=== PATIENT | female | born 1995 | race Caucasian/White ===

== ENCOUNTER 2024-10-08 14:38 | Emergency (ER) | payer MEDICAID ==
[2024-10-08] MEDS ORDERED: Ketamine 200 MG/20 ML MDV ONE (14:49)
[2024-10-08] MEDS ORDERED: fentaNYL 50 MCG/ML SDV ONE (14:49)
[2024-10-08] MEDS ORDERED: Ketamine 200 MG/20 ML MDV IVPUSH ONE (14:57)
[2024-10-08] MEDS: fentaNYL 50 MCG/ML SDV IVPUSH ONE (15:00)
[2024-10-08] MEDS: Ketamine 200 MG/20 ML MDV IVPUSH ONE (15:05)
== END 2024-10-08 15:33 | disposition home or self-care (01) ==
LOC: CC.ED 14:38
DX: S43.004A Unspecified dislocation of right shoulder joint, initial encounter (principal); W01.0XXA Fall on same level from slipping, tripping and stumbling without subsequent striking against object, initial encounter
CPT/HCPCS: 23650; 73020-RT; 96374; 99283-25; J3010; J3490

== ENCOUNTER 2025-03-06 15:47 | Emergency (ER) | payer MEDICAID ==
[2025-03-06] MEDS: Sodium Chloride 0.9% 500 ML IV SCH (17:15)
[2025-03-06] MEDS: Ketamine 200 MG/20 ML MDV IVPUSH ONE (17:27)
== END 2025-03-06 18:24 | disposition home or self-care (01) ==
LOC: CC.ED 15:47
DX: S43.014A Anterior dislocation of right humerus, initial encounter (principal); W18.39XA Other fall on same level, initial encounter; Y93.89 Activity, other specified; Z79.899 Other long term (current) drug therapy
CPT/HCPCS: 23650; 73020-RT; 73030-RT; 99283-25; J3490; J7040